=== PATIENT | female | born 1975 | race Caucasian/White ===

== ENCOUNTER 2018-12-28 09:04 | Emergency (ER) | payer BC ==
--- OUTSIDE RECORDS SUMMARY | 2018-12-28 09:20 | XMS REPORT | Continuity of Care Document ---
:1975 External Reference #:[id number] Author Name Brenton Del Angel M.D., [facility] Address [address] [place] [address] Care Team Providers Name Role Phone Aimee Villegas MD - Internal Medicine Care Team Information Care Technician Problems Active Problems Provider Date Benign essential hypertension Brenton Del Angel M.D., [facility] Onset: 2018 Hyperlipidemia Brenton Del Angel M.D., [facility] Onset: 12/01/2018 Other cardiomyopathies Brenton Del Angel M.D., [facility] Onset: 12/04/2018 Long QT syndrome Brenton Del Angel M.D., [facility] Onset: 12/04/2018 Tobacco user Brenton Del Angel M.D., [facility] Onset: 12/04/2018 Social History Type Date Description Comments Sex Unknown Tobacco Use Start: Unknown Current Cigarette Smoker 1 Pack Daily x 18 yrs Smoking Status Reviewed: 12/04/18 Current Cigarette Smoker 1 Pack Daily x 18 yrs ETOH Use Denies alcohol use Allergies, Adverse Reactions, Alerts Description No Known Drug Allergies Medications Active Medications SIG Qnty Indications Ordering Provider Date Aleve 1 by mouth twice Unknown 220mg Capsules a day after meals Losartan Potassium 1 by mouth every Unknown 50mg day Tablets Omeprazole 1 by mouth every Unknown 40mg Capsules DR day Ranitidine 150 Maximum 1 tab by mouth Unknown Strength twice a day 150mg Tablets Immunizations Description No Information Available Vital Signs Date Vital Result Comment 12/04/2018 9:04am BP Systolic Sitting Right Arm 152 mmHg BP Diastolic Sitting Right Arm 93 mmHg Heart Rate 89 /min Respiratory Rate 16 /min Weight 245.00 lb O2 % BldC Oximetry 95 % ora 11/24/2009 11:41am Heart Rate 96 /min Respiratory Rate 20 /min Height 70.75 inches 5'10.75" Weight 203.00 lb BMI (Body Mass Index) 28.5 kg/m2 Last Menstrual Period 0 Results Description No Information Available Procedures Date Code Description Status 12/04/2018 23053 EKG-Tracing And Report Completed Medical Devices Description No Information Available Encounters Type Date Location Provider Dx Diagnosis Office Visit 12/04/2018 Cardiology Office Martina Del Angel8 Other cardiomyopathies 9:00a Brenton Maldonado M.D., [facility] F17.210 Nicotine dependence, cigarettes, uncomplicated I10 Essential (primary) hypertension I45.81 Long QT syndrome Assessments Date Code Description Provider 12/04/2018 I42.8 Other cardiomyopathies Brenton Del Angel M.D., [facility] 12/04/2018 F17.210 Nicotine dependence, cigarettes, Brenton Del Angel M.D., uncomplicated [facility] 12/04/2018 I10 Essential (primary) hypertension Brenton Del Angel M.D., [facility] 12/04/2018 I45.81 Long QT syndrome Brenton Del Angel M.D., [facility] Plan of Treatment Future Appointment(s):02/02/2019 1:40 pm - Brenton Del Angel M.D., [facility] at Cardiology Naqztq8412/04/2018 - Brenton Del Angel M.D., FACCI42.8 Other cardiomyopathiesComments: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 Women, in general, have a better prognosis. She will have genetic testing.F17.210 Nicotine dependence, cigarettes, uncomplicatedComments:Counseled patient on smoking cessation for more than 3 min. Because of her risk factors I will ordera stress test.I10 Essential (primary) hypertensionComments:Her BP is high today. She will watching her BP and will discuss it next OV.I45.81 Long QT syndromeComments :Her QT is slightly prolonged. No specific changes in medications is necessary.AllFollow up:Follow up visit in one month. Functional Status Description No Information Available Mental Status Description No Information Available Referrals Description No Information Available
--- OUTSIDE RECORDS SUMMARY | 2018-12-28 09:20 | XMS REPORT | Continuity of Care Document ---
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 Problems Provider Date Benign essential hypertension Brenton Del Angel M.D., [facility] Onset: 2018 Hyperlipidemia Brenton Del Angel M.D., [facility] Onset: 12/01/2018 Other cardiomyopathies Brenton Del Angel M.D., [facility] Onset: 12/04/2018 Long QT syndrome Brenton Del Angel M.D., [facility] Onset: 12/04/2018 Tobacco user Brenton Del Angel M.D., [facility] Onset: 12/04/2018 Social History Type Date Description [...] Available Procedures Date Code Description Status 12/04/2018 57778 EKG-Tracing And Report Completed Medical Devices Description No Information Available Encounters Type Date Location Provider Dx Diagnosis Office Visit 12/04/2018 Cardiology Office Martina Del Angel8 Other cardiomyopathies 9:00a Brenton Maldonado M.D., [facility] F17.210 Nicotine dependence, cigarettes, uncomplicated I10 Essential (primary) hypertension I45.81 Long QT syndrome Assessments Date Code Description Provider 12/04/2018 I42.8 Other cardiomyopathies Brenton Del Angel M.D., [facility] 12/04/2018 F17.210 Nicotine dependence, cigarettes, Brenton Del Angel M.D., uncomplicated [facility] 12/04/2018 I10 Essential (primary) hypertension Brenton Del Angel M.D., [facility] 12/04/2018 I45.81 Long QT syndrome Brenton Del Angel M.D., [facility] Plan of Treatment Future Appointment(s):02/02/2019 1:40 pm - Brenton Del Angel M.D., [facility] at Cardiology [id number]/04/2018 - Brenton Del Angel M.D., FACCI42.8 Other [...]
[2018-12-28 09:26] VITALS: BP 182/98
--- NOTE | 2018-12-28 09:29 | UC ---
Respiratory Complaint HPI - HPI Summary HPI Summary: 43 year old female present with complaint of worsening productive cough with associated siinus congestion and chest congestion over the past three weeks. Denies fever nor chills. Coughs so hard she vomits at times. - History of Current Complaint Chief Complaint: UCGeneralIllness Stated Complaint: CONGESTION Time Seen by Provider: 12/28/18 09:19 Hx Obtained From: Patient Hx Last Menstrual Period: 12/01/18 Onset/Duration: Gradual Onset, Lasting Weeks - 3 weeks Pain Intensity: 0 Character: Cough: Productive, Sputum Description: - thick, green Alleviating Factors: OTC Meds - Flu and sinus - Allergies/Home Medications Allergies/Adverse Reactions: Allergies Allergy/AdvReac Type Severity Reaction Status Date / Time No Known Allergies Allergy Verified 12/28/18 09:20 Home Medications: Home Medications Blood Pressure Med 1 dose PO DAILY 12/28/18 [History Confirmed 12/28/18] Omeprazole 20 mg PO DAILY 12/28/18 [History Confirmed 12/28/18] Varenicline Tartrate [Chantix] 1 daniel PO SEE INSTRUCTIONS 12/28/18 [History Confirmed 12/28/18] raNITIdine HCl [Ranitidine HCl] 150 mg PO BID PRN 12/28/18 [History Confirmed ] PMH/Surg Hx/FS Hx/Imm Hx Previously Healthy: Yes Cardiovascular History: Hypertension GI/ History: Gastroesophageal Reflux - Surgical History Surgical History: Yes Surgery Procedure, Year, and Place: appy. tubal. ear tubes - Family History Known Family History: Positive: Cardiac Disease - Social History Alcohol Use: Rare Substance Use Type: None Smoking Status (MU): Light Every Day Tobacco Smoker Type: Cigarettes Amount Used/How Often: 1/2 PPD Review of Systems All Other Systems Reviewed And Are Negative: Yes Constitutional: Positive: Negative Skin: Positive: Negative Eyes: Positive: Negative ENT: Positive: Sinus Congestion Respiratory: Positive: Cough. Negative: Shortness Of Breath Cardiovascular: Negative: Palpitations, Chest Pain Gastrointestinal: Positive: Vomiting - with deep coughing only. Genitourinary: Positive: Negative Musculoskeletal: Positive: Negative Neurological: Positive: Negative Psychological: Positive: Negative Is Patient Immunocompromised?: No Physical Exam Triage Information Reviewed: Yes Appearance: Well-Appearing Vital Signs: Initial Vital Signs Temp 98.2 F 12/28/18 09:22 Pulse 98 12/28/18 09:22 Resp 16 12/28/18 09:22 BP 182/98 12/28/18 09:22 Pulse Ox 97 12/28/18 09:22 Vital Signs Reviewed: Yes ENT: Positive: Pharynx normal, Nasal congestion, TMs normal. Negative: Tonsillar exudate Neck: Positive: Supple, Nontender, No Lymphadenopathy Respiratory: Positive: Chest non-tender, No respiratory distress, Rhonchi - scattered. Negative: Crackles, Wheezing Cardiovascular: Positive: RRR, No Murmur Abdomen Description: Positive: Nontender, Soft Musculoskeletal Exam: Normal Neurological Exam: Normal Psychological Exam: Normal Skin Exam: Normal Respiratory Course/Dx - Differential Dx/Diagnosis Differential Diagnosis/HQI/PQRI: Sinusitis Provider Diagnosis: Acute bronchitis Discharge ED - Sign-Out/Discharge Documenting (check all that apply): Patient Departure All imaging exams completed and their final reports reviewed: No Studies - Discharge Plan Condition: Stable Disposition: HOME Prescriptions: Amoxicillin/Clavulanate TAB* [Augmentin TAB 875*] 875 mg PO BID 10 Days #20 tab Patient Education Materials: Acute Bronchitis (ED) Referrals: Aimee Villegas MD [Primary Care Provider] - Additional Instructions: Take the antibiotics as prescribed, Mucinex DM for cough is recommended. Tylenol for aches/pains. If symptoms do not resolve or worsen despite treatment , follow-up with your Primary Care Physician. - Billing Disposition and Condition Condition: STABLE Disposition: Home
== END 2018-12-28 09:57 | disposition home or self-care (01) ==
LOC: UCCORT 09:04
DX: J20.9 Acute bronchitis, unspecified (principal); I10 Essential (primary) hypertension; K21.9 Gastro-esophageal reflux disease without esophagitis; Z79.899 Other long term (current) drug therapy; F17.210 Nicotine dependence, cigarettes, uncomplicated
CPT/HCPCS: 99212; G0463